=== PATIENT | female | born 1995 | race Caucasian/White ===

== ENCOUNTER 2023-08-19 20:43 | Emergency (ER) | payer OTHER ==
[~2023-08-19] VITALS: Ht 170.2 cm; Wt 91.0 kg
[2023-08-19 20:46] VITALS: BP 143/86; RESP 20; TEMP 97.8; O2SAT 97
[2023-08-19 20:47] VITALS: PULSE 115
[2023-08-19] MEDS ORDERED: KETOROLAC 30MG/ML VIAL IM ONE (23:30)
[2023-08-19] MEDS ORDERED: BACITRACIN ZINC OINT UDPKT TOP ONE (23:30)
[2023-08-19] MEDS ORDERED: LIDOCAINE HCL/PF 1% 10 MG/ML 5ML VIAL INFIL ONE (23:30)
[2023-08-20] MEDS ORDERED: AMOX1TAB16 MT (00:26)
== END 2023-08-20 00:47 | disposition home or self-care (01) ==
LOC: ER 20:43
DX: S81.832A Puncture wound without foreign body, left lower leg, initial encounter (principal); W54.0XXA Bitten by dog, initial encounter; Y93.89 Activity, other specified; Y92.89 Other specified places as the place of occurrence of the external cause; Y99.8 Other external cause status; Z98.890 Other specified postprocedural states
CPT/HCPCS: 99284; 12002; 96372; J1885; J3490

== ENCOUNTER 2023-08-26 23:54 | Emergency (ER) | payer OTHER ==
[~2023-08-26] VITALS: Ht 170.2 cm; Wt 91.0 kg
[~2023-08-26 23:54] MED LIST: AMOX1TAB16 MT
[2023-08-27 00:35] VITALS: BP 113/70; O2SAT 97
[2023-08-27 03:11] VITALS: PULSE 93; RESP 18; TEMP 98
== END 2023-08-27 03:13 | disposition home or self-care (01) ==
LOC: ER 23:54
DX: S81.811D Laceration without foreign body, right lower leg, subsequent encounter (principal); W54.0XXD Bitten by dog, subsequent encounter
CPT/HCPCS: 99281; Z7610 ×3